=== PATIENT | female | born 1970 | race Caucasian/White ===

== ENCOUNTER 2020-01-13 17:08 | Emergency (ER) | payer OTHER ==
[~2020-01-13] VITALS: Ht 165.1 cm; Wt 75.7 kg
--- NOTE | 2020-01-13 17:18 | NUR ---
came in [facility], dizzy, almost fainted 30min ago, concerned about meth still in her system s/p taking it 2 weeks ago. to ER bed 11, hooked to monitor, changed to hosp gown,warm blanket provided. patient aao X 4, breathing even and unlabored. awaiting MD antonio.
--- NOTE | 2020-01-13 18:06 | NUR ---
Patient discharged to home in stable condition. Written and verbal after care instructions given. Patient verbalizes understanding of instruction.
[2020-01-13 18:07] VITALS: BP 112/76
== END 2020-01-13 18:21 | disposition home or self-care (01) ==
LOC: ER 17:15
DX: F15.10 Other stimulant abuse, uncomplicated (principal); I10 Essential (primary) hypertension; F41.9 Anxiety disorder, unspecified; F32.9 Major depressive disorder, single episode, unspecified; E78.5 Hyperlipidemia, unspecified; Z90.49 Acquired absence of other specified parts of digestive tract; Z98.890 Other specified postprocedural states; Z88.0 Allergy status to penicillin; Z88.8 Allergy status to other drugs, medicaments and biological substances